=== PATIENT | female | born 1970 | race African-American/Black ===

== ENCOUNTER 2019-05-04 14:17 | Emergency (ER) | payer OTHER ==
[~2019-05-04] VITALS: Ht 160 cm; Wt 92.5 kg
[~2019-05-04 14:17] MED LIST: NOHOMEMEDICATIONS; NORCO 5-325 TA1 EACH PO; PHENERGAN 25 MG25 M1 PO
[2019-05-04 15:26] VITALS: BP 153/115
== END 2019-05-04 15:26 | disposition home or self-care (01) ==
LOC: ER 14:17
DX: S13.8XXA Sprain of joints and ligaments of other parts of neck, initial encounter (principal); R51 Headache; F32.9 Major depressive disorder, single episode, unspecified; V89.2XXA Person injured in unspecified motor-vehicle accident, traffic, initial encounter; Y93.89 Activity, other specified; Y92.89 Other specified places as the place of occurrence of the external cause; Y99.8 Other external cause status